=== PATIENT | female | born 1945 | race Caucasian/White ===

== ENCOUNTER 2017-08-05 07:37 | Emergency (ER) | payer MEDICARE, MEDICAID ==
[~2017-08-05] VITALS: Ht 165.1 cm; Wt 50.8 kg
--- NOTE | 2017-08-05 07:40 | NUR ---
[facility], PER REPORT, PT HIT HEAD. NO KO. RECEIVED PT AAO4. DENIES HITTING HEAD. VSS. NO COMPLAIN AT THIS TIME.
--- NOTE | 2017-08-05 08:53 | NUR ---
CALLED TRANSPORT ETA 45 MIN PER JOYCELYN TRIP NUMBER IS [id number]
--- NOTE | 2017-08-05 09:37 | NUR ---
PATIENT TRANSPORTED TO [facility]. VSS
[2017-08-05 09:38] VITALS: BP 120/76
== END 2017-08-05 09:38 | disposition home or self-care (01) ==
LOC: ER 07:39
DX: Z04.3 Encounter for examination and observation following other accident (principal); R51 Headache; D64.9 Anemia, unspecified; C50.919 Malignant neoplasm of unspecified site of unspecified female breast; F03.90 Unspecified dementia, unspecified severity, without behavioral disturbance, psychotic disturbance, mood disturbance, and anxiety; W01.0XXA Fall on same level from slipping, tripping and stumbling without subsequent striking against object, initial encounter; Y93.89 Activity, other specified; Y92.89 Other specified places as the place of occurrence of the external cause; Y99.8 Other external cause status
CPT/HCPCS: 70450; 99284; A4606; Z7610

== ENCOUNTER 2018-01-07 09:25 | Emergency (ER) | payer MEDICARE, MEDICAID ==
[~2018-01-07] VITALS: Ht 152.4 cm; Wt 47.6 kg
--- NOTE | 2018-01-07 09:25 | NUR ---
BBRA FROM HOME C/O TAILBONE PAIN S/P TRIPPED AND FALL, HIT HEAD TO THE DOOR. VSS. BREATHING EVEN AND UNLABORED. DR BOLANOS AT BEDSIDE FOR EVAL. PT PLACED ON MONITOR.
[2018-01-07] MEDS ORDERED: MORPHINE SULFATE INJ 2 MG/ML DISP.SYRIN ONE (09:35)
[2018-01-07] MEDS ORDERED: ONDANSETRON HCL/PF 4 MG/2 ML VIAL ONE (09:35)
[2018-01-07 09:46] LABS: BASOPHILS # (AUTO) 0.1 /CMM (0.0-0.2); BASOPHILS % (AUTO) 0.9 % (0.0-2.0); EOSINOPHILS % (AUTO) 0.4 % (0.0-6.0); HEMATOCRIT 32 % (33-45); HEMOGLOBIN 10.8 g/dL (11.5-14.8); LYMPHOCYTES # (AUTO) 0.7 /CMM (0.8-4.8); LYMPHOCYTES % (AUTO) 11.9 % (20.0-44.0); MEAN CORPUSCULAR HGB CONC 34 g/dl (31.0-36.0); MEAN CORPUSCULAR VOLUME 87 fL (82-100); MONOCYTES # (AUTO) 0.5 /CMM (0.1-1.30); MONOCYTES % (AUTO) 9.1 % (2.0-12.0); NEUTROPHILS # (AUTO) 4.7 /CMM (1.8-8.9); NEUTROPHILS % (AUTO) 77.7 % (43.0-81.0); PLATELET COUNT (AUTO) 204 /CMM (150-450); RDW COEFFICIENT OF VARIATION 16.8 (11.5-15.0); RED BLOOD CELL COUNT(AUTO) 3.68 MIL/uL (4.0-5.2)
[2018-01-07 09:55] LABS: CALCIUM, SERUM 8.7 mg/dL (8.5-10.1); CARBON DIOXIDE 23 mmol/L (21-32); CHLORIDE 104 mmol/L (98-107); CREATININE 0.8 mg/dL (0.6-1.3); GLUCOSE 80 mg/dL (74-106); POTASSIUM 3.9 mmol/L (3.5-5.1); SODIUM SERUM 135 mmol/L (136-145); UREA NITROGEN, BLOOD 14 mg/dL (7-18)
[2018-01-07] MEDS ORDERED: MORPHINE SULFATE INJ 2 MG/ML DISP.SYRIN IV ONE (10:00)
[2018-01-07] MEDS ORDERED: ONDANSETRON HCL/PF 4 MG/2 ML VIAL IVP ONE (10:00)
[2018-01-07] MEDS ORDERED: IV NS 0.9% 500 ML BAG IV ONE (10:00)
[2018-01-07 10:03] LABS: TROPONIN I < 0.017 ng/mL (0.00-0.056)
[2018-01-07 10:06] LABS: ALANINE AMINOTRANSFERASE 49 U/L (12-78); ALBUMIN 2.2 g/dL (3.4-5.0); ASPARTATE AMINOTRANSFERASE 141 U/L (15-37); BILIRUBIN,DIRECT 1.2 mg/dL (0.0-0.2); BILIRUBIN,TOTAL 1.7 mg/dL (0.2-1.0); TOTAL PROTEIN, SERUM 5.7 g/dL (6.4-8.2)
[2018-01-07 10:09] LABS: INR 1.01 (0.85-1.15)
[2018-01-07 10:43] LABS: ALKALINE PHOSPHATASE 1200 U/L (46-116)
[2018-01-07 11:42] VITALS: BP 128/67
--- NOTE | 2018-01-07 12:11 | NUR ---
ART [employer] AND AIR DELIVERY SPECIALIST AND [employer] MECHANIC SPOKE WITH PATIENT'S BROTHER REGARDING HOSPICE SERVICES AND OFFERED SERVICES TO HIM. PER BROTHER HE WOULD LIKE TO GO TO HIS OWN ONCOLOGIST AND TO BE DISCHARGED. PT VERBALIZED UNDERSTANDING OF SERVICES OFFERED AND STILL WISHES TO BE DISCHARGED. PATIENT AGREED. DR BOLANOS AWARE. CALLING TRANSPORT AT THIS TIME.
--- NOTE | 2018-01-07 12:17 | NUR ---
CALLED [facility] AND SPOKE WITH DISPATCHER BILLY TO ARRANGE A BLS TRANSPORT BACK TO [facility]. AN ETA OF 1300 WAS GIVEN. TRIP#: [id number]
== END 2018-01-07 13:23 | disposition home or self-care (01) ==
LOC: ER 09:27
DX: C79.81 Secondary malignant neoplasm of breast (principal); S00.03XA Contusion of scalp, initial encounter; M54.5 Low back pain; D64.9 Anemia, unspecified; J90 Pleural effusion, not elsewhere classified; K57.30 Diverticulosis of large intestine without perforation or abscess without bleeding; R18.8 Other ascites; Z45.2 Encounter for adjustment and management of vascular access device; W01.0XXA Fall on same level from slipping, tripping and stumbling without subsequent striking against object, initial encounter; Y93.89 Activity, other specified; Y92.89 Other specified places as the place of occurrence of the external cause; Y99.8 Other external cause status
CPT/HCPCS: 36415; 70450-TC; 71045-TC; 72100-TC; 72170-TC; 72192-TC; 80048-TC; 80076-TC; 83605-TC; 84484-TC; 85025-TC; 85730-TC; 86850-TC; 87040-TC; A4606; J2270; J2405; J7040; Z7610

== ENCOUNTER 2018-02-07 08:12 | Inpatient (IN) | payer MEDICARE, MEDICAID ==
[~2018-02-07] VITALS: Ht 167.6 cm; Wt 41.7 kg
--- NOTE | 2018-02-07 08:20 | NUR ---
[id number] FROM HOME D/T GENERALIZED WEAKNESS. PATIENT IS CACHEXIC, FRAIL, BEDRIDDEN. A/OX 2. BREATHING EVEN AND UNLABORED. HX OF BREAST CA, R. BREAST MASTECTOMY. ARNALDO CATH PRESENT ON LEFT CHEST WALL. NO DISTRESS NOTED, VSS. SAFETY AND COMFORT MEASURES IN PLACE. AWAITING MD ORDERS.
--- NOTE | 2018-02-07 08:30 | NUR ---
NEW IV STARTED ON LAC, 20G. BLOOD DRAWN AND SENT TO LAB.
--- NOTE | 2018-02-07 08:35 | NUR ---
URINE OBTAINED VIA STRAIGHT CATH AND SENT TO LAB PER MD ORDERS.
[2018-02-07 08:54] LABS: HEMATOCRIT 29 % (33-45); HEMOGLOBIN 9.6 g/dL (11.5-14.8); MEAN CORPUSCULAR HGB CONC 33 g/dl (31.0-36.0); MEAN CORPUSCULAR VOLUME 93 fL (82-100); PLATELET COUNT (AUTO) 157 /CMM (150-450); RDW COEFFICIENT OF VARIATION 19.7 (11.5-15.0); RED BLOOD CELL COUNT(AUTO) 3.12 MIL/uL (4.0-5.2); WHITE BLOOD COUNT (AUTO) 8.7 K/uL (4.3-11.0)
[2018-02-07 08:59] LABS: APPEARANCE,URINE SL CLOUDY (CLEAR); BILIRUBIN,URINE 1+ (NEGATIVE); BLOOD, URINE NEGATIVE Ery/uL (NEGATIVE); COLOR,URINE YELLOW (YELLOW); KETONES,URINE NEGATIVE (NEGATIVE); LEUKOCYTE ESTERASE ,URINE TRACE (NEGATIVE); NITRITE, URINE NEGATIVE (NEGATIVE); PH,URINE 5.5 (5.0-8.0); PROTEIN,URINE NEGATIVE (NEGATIVE); UGLUCOSE NEGATIVE (NEGATIVE)
[2018-02-07] MEDS ORDERED: IV NS 0.9% 1,000 ML BAG IV ONE (09:00)
--- NOTE | 2018-02-07 09:00 | NUR ---
BARKEEPER AT BEDSIDE.
[2018-02-07] MEDS ORDERED: DOCU-141 PO (09:14)
[2018-02-07] MEDS ORDERED: ANAS1TAB8 PO (09:14)
[2018-02-07 09:16] LABS: TROPONIN I < 0.017 ng/mL (0.00-0.056)
[2018-02-07 09:20] LABS: ALANINE AMINOTRANSFERASE 99 U/L (12-78); ALBUMIN 2.4 g/dL (3.4-5.0); ASPARTATE AMINOTRANSFERASE 318 U/L (15-37); BACTERIA,URINE Few /HPF (None Seen); BILIRUBIN,DIRECT 5.5 mg/dL (0.0-0.2); BILIRUBIN,TOTAL 6.5 mg/dL (0.2-1.0); CALCIUM, SERUM 8.9 mg/dL (8.5-10.1); CARBON DIOXIDE 21 mmol/L (21-32); CHLORIDE 109 mmol/L (98-107); CREATININE 0.9 mg/dL (0.6-1.3); POTASSIUM 4.2 mmol/L (3.5-5.1); RBC,URINE NONE SEEN /HPF (0-2); SODIUM SERUM 145 mmol/L (136-145); TOTAL PROTEIN, SERUM 5.1 g/dL (6.4-8.2); UREA NITROGEN, BLOOD 61 mg/dL (7-18)
[2018-02-07 09:21] LABS: ALKALINE PHOSPHATASE 1450 U/L (46-116); GLUCOSE 40 mg/dL (74-106); SQUAMOUS EPITHELIAL CELL,UR Few /HPF (None Seen); URINE AMORPHOUS URATE Moderate /HPF (None Seen)
[2018-02-07] MEDS ORDERED: DEXTROSE 50%-WATER 50 ML DISP.SYRIN ONE (09:23)
[2018-02-07 09:25] LABS: INR 1.57 (0.87-1.13)
[2018-02-07] MEDS ORDERED: DEXTROSE 50%-WATER 50 ML DISP.SYRIN IV ONE (09:30)
--- NOTE | 2018-02-07 09:35 | NUR ---
ROOM CHANGE TO 310-2
--- NOTE | 2018-02-07 09:39 | NUR ---
REPORT GIVEN TO REID YI FOR CHRISTAL UPON ADMISSION.
[2018-02-07 09:53] LABS: BAND % (MANUAL) 2 % (0.0-5.0); LYMPHOCYTES % (MANUAL) 9 % (16-48); MONOCYTES % (MANUAL) 6 % (0-11.0); NEUTROPHILS % (MANUAL) 83 (42-76)
--- NOTE | 2018-02-07 09:57 | NUR ---
repeat blood sugar, 72, md informed.
[2018-02-07 10:30] VITALS: BP 124/77
--- NOTE | 2018-02-07 10:30 | NUR ---
RN NOTES CHARGE NURSE SOON RECEIVED BEDSIDE REPORT FROM ER NURSE
--- NOTE | 2018-02-07 10:45 | NUR ---
TELE/RN ADMITTING NOTES RECEIVED PT ASSIGNMENT, CHARGE NURSE SOON GAVE REPORT FOR CHRISTAL, RECEIVED PT IN BED, APPEARS TO BE LETHARGIC BUT EASILY AROUSABLE TO NAME AND LIGHT TOUCH. PT ON 2LPM 02 VIA NC, TOLERATING WELL. NO ACUTE DISTRESS NOTED, NO C/O PAIN, BROTHAARON MARTINEZ AT BEDSIDE, PLACED ON TELE MONITOR, SR AT 83. WITH INTACT AND PATENT SL ON LAC, INITIAL BODY ASSESSMENT DONE, VS TAKEN AND RECORDED. SAFETY MEASURES OBSERVED. BED IN LOW AND LOCKED POSITION, SR UP X2, CALL LIGHT WITHIN REACH, ORIENTED TO PT'S ROOM, DR OTRIZ WILL SEE PT, WILL CONT TO MONITOR
[2018-02-07 12:00] VITALS: BP_SYST 122; BP_SYST 129; BP_DIAS 79; BP_DIAS 82
--- NOTE | 2018-02-07 13:00 | NUR ---
RN NOTES PT WAS SEEN AND EXAMINED BY BROTHER MICHELLE ZENG AT BEDSIDE. ALL CONCERNS WERE ANSWERED BY
[2018-02-07] MEDS ORDERED: Z GUARD REMEDY 2 OZ OINT TP PRN (13:30)
[2018-02-07] MEDS ORDERED: DOCUSATE SODIUM 100 MG CAPSULE PO PRN (13:30)
[2018-02-07] MEDS ORDERED: IV D5/ 0.9% NACL 1,000 ML IV ONE (13:30)
[2018-02-07] MEDS ORDERED: ZOLPIDEM TARTRATE 5 MG TABLET PO PRN (13:30)
[2018-02-07] MEDS ORDERED: ACETAMINOPHEN 325 MG TABLET PO PRN (13:30)
[2018-02-07] MEDS ORDERED: MAG HYDROX/AL HYDROX/SIMETH 30 ML UDC PO PRN (13:30)
[2018-02-07] MEDS ORDERED: MAGNESIUM HYDROXIDE 30 ML UDC PO PRN (13:30)
[2018-02-07] MEDS ORDERED: ONDANSETRON HCL/PF 4 MG/2 ML VIAL IVP PRN (13:30)
[2018-02-07 16:00] VITALS: BP 129/79
--- NOTE | 2018-02-07 19:13 | NUR ---
RN CLOSING NOTES PT REMAINED STABLE, NO C/O PAIN, NO ACUTE DISTRESS NOTED, SAFETY MEASURES OBSERVED AT ALL TIMES, ENDORSED TO PM SHIFT NURSE FOR CHRISTAL
--- NOTE | 2018-02-07 19:30 | NUR ---
BIOLOGICAL ENGINEER NOTE: RECEIVED PATIENT AOX2, SPEECH CLEAR, WITH FAMILY AT BEDSIDE, NO PAIN REPORTED, NO S/SX OF RESPIRATORY OR CARDIAC DISTRESS, 2L O2 VIA NC, INCONTINENT SKIN KEPT CLEAN AND DRY, LAC #20G PATENT FLUSHING WELL WITH D5NS AT 100 ML/HR, CDI, SAFETY MAINTAINED AT ALL TIMES, BED IN LOW LOCKED POSITION, CALL LIGHT WITHIN REACH, WILL CONTINUE TO MONITOR FOR ANY CHANGES IN CONDITION.
[2018-02-07] MEDS: HYDROCODONE/APAP 5/325MG 1 EACH TABLET PO PRN (22:09)
[2018-02-08] VITALS: BP 125/82
[2018-02-08 04:00] VITALS: BP 133/84
[2018-02-08 06:10] LABS: HEMATOCRIT 32 % (33-45); HEMOGLOBIN 10.8 g/dL (11.5-14.8); MEAN CORPUSCULAR HGB CONC 34 g/dl (31.0-36.0); MEAN CORPUSCULAR VOLUME 93 fL (82-100); PLATELET COUNT (AUTO) 148 /CMM (150-450); RDW COEFFICIENT OF VARIATION 19.7 (11.5-15.0); WHITE BLOOD COUNT (AUTO) 11.2 K/uL (4.3-11.0)
[2018-02-08 06:16] LABS: CHOLESTEROL 289 mg/dL (<200); HDL CHOLESTEROL 90 mg/dL (40-60); LDL 171 mg/dL (0-99); TRIGLYCERIDES 37 mg/dL (30-150)
[2018-02-08 06:20] LABS: CALCIUM, SERUM 8.8 mg/dL (8.5-10.1); CARBON DIOXIDE 19 mmol/L (21-32); CHLORIDE 114 mmol/L (98-107); CREATININE 1.1 mg/dL (0.6-1.3); GLUCOSE 178 mg/dL (74-106); MAGNESIUM 2.9 mg/dL (1.8-2.4); PHOSPHORUS 4.4 mg/dL (2.5-4.9); SODIUM SERUM 148 mmol/L (136-145); UREA NITROGEN, BLOOD 65 mg/dL (7-18)
--- NOTE | 2018-02-08 07:10 | NUR ---
CHART CHANGER OPENING NOTE: RECEIVED PATIENT IN BED AOX1, SPEECH CLEAR, NO S/SX OF RESPIRATORY OR CARDIAC DISTRESS, 2L O2 VIA NC, IV LAC #20G PATENT FLUSHING WELL . SAFETY MAINTAINED AT ALL TIMES, BED IN LOW LOCKED POSITION, CALL LIGHT WITHIN REACH, WILL CONTINUE TO MONITOR FOR ANY CHANGES IN CONDITION.
[2018-02-08 08:00] VITALS: BP 102/67
[2018-02-08] MEDS: HYDROCODONE/APAP 5/325MG 1 EACH TABLET PO PRN (08:16)
--- NOTE | 2018-02-08 08:34 | NUR ---
WOUND CARE CONSULT: PT PRESENTS WITH DEEP TISSUE INJURIES WHICH ARE INTACT, TO SACRUM AND RT EAR, PRESENT ON ADMISSION. PT ALSO NOTED TO BE EXTREMELY CACHECTIC WITH DUSKY COLOR TO FEET AND 4+ PITTING EDEMA. ALL SKIN PROTECTION AND WOUND CARE RECOMMENDATIONS DISCUSSED WITH NURSING STAFF. PT ON NEW POINT ISOFLEX LOW AIRLOSS BED. WILL SEE PRN. RODRIGUEZ IN AGREEMENT WITH PLAN OF CARE. Addendum: 02/08/18 at 0836 by SIOMARA MASON WNDNU Amended: Links added.
[2018-02-08 08:47] LABS: BAND % (MANUAL) 1 % (0.0-5.0); EOSINOPHILS % (MANUAL) 1 % (0-4); LYMPHOCYTES % (MANUAL) 4 % (16-48); MONOCYTES % (MANUAL) 2 % (0-11.0); NEUTROPHILS % (MANUAL) 92 (42-76)
--- NOTE | 2018-02-08 08:57 | NUR ---
RN NOTES WOUND CONSULT DONE.GOT NEW ORDERS.
[2018-02-08] MEDS ORDERED: ANASTROZOLE 1 MG TABLET PO SCH (09:00)
[2018-02-08] MEDS ORDERED: MORPHINE SULFATE INJ 4 MG/ML DISP.SYRIN IV PRN (11:00)
[2018-02-08] MEDS ORDERED: IV D5/ 0.9% NACL 1,000 ML IV ONE (11:00)
--- NOTE | 2018-02-08 11:00 | NUR ---
RN NOTES PATIENT TAKING MORE TIME TO SWALLOW. MEDS AND FOOD.REQUESTED FOR IV PAIN MANAGEMENT AND IVF TO .GOT NEW ORDERS.BROTHER AT BEDSIDE.PREFERS HOSPICE CARE. MADE AWARE.PATIENT IS COMFORTABLE .CONTINUE TO MONITOR.
[2018-02-08] MEDS ORDERED: ACETAMINOPHEN 650 MG/SUPP.RECT RC PRN (15:00)
[2018-02-08] MEDS ORDERED: LORAZEPAM INJ 2 MG/ML VIAL IV PRN (15:00)
--- NOTE | 2018-02-08 15:00 | NUR ---
RN NOTES SEEN BY .SPOKE TO BROTHER.GOT NEW ORDER FOR COMFORT CARE,TO START ON MORPHINE DRIP.CARRIED OUT ALL THE ORDERS .BROTHER IS AT BEDSIDE.PATIENT HAS RESPIRATORY RATE OF 24.WILL CONTINUE TO MONITOR.
[2018-02-08] MEDS ORDERED: KEY,NONCONTROL,TO KEEP IN PYXI 1 EA MC ONE (17:23)
--- NOTE | 2018-02-08 19:00 | NUR ---
RN SHIFT END NOTE: PATIENT IN BED NOT RESPONDS ONLY TO TOUCH AND MILD PAIN, ON IV MORPHINE DRIP 2MG/HR FOR COMFORT CARE.BROTHER IS AT BEDSIDE.NO OTHER FAMILY MEMBERS TO VISIT HER PER BROTHER. NO S/SX OF RESPIRATORY OR CARDIAC DISTRESS, 2L O2 VIA NC,CURRENT RESPIRATORY RATE IS 22. IV LAC #20G PATENT FLUSHING WELL . SAFETY MAINTAINED AT ALL TIMES, BED IN LOW LOCKED POSITION, CALL LIGHT WITHIN REACH, ENDORSED TO PM NURSE FOR CHRISTAL
--- NOTE | 2018-02-08 22:35 | NUR ---
MS-1/CREPE BOX TENDER PT AT 2139 PRONOUNCED BY KINGSTON YI AND UMA YI. [facility] CALLED @ 2139 REF# [id number], PT BROTHER MICHELLE NOTIFIED AT 2199, VIKY CULLEN NOTIFIED AT 2150, ADMITTING NOTIFIED AT 2151, MARINO CALZADA NOTIFIED AT 2155. POST MORTEM CARE DONE. REMAINS TAKEN TO IN HOUSE MICHELLE.
== END 2018-02-08 21:40 | disposition expired | DRG 682 ==
LOC: ER 08:13 → TELE 10:26 → TELE-TD 10:44 → TELE1 11:19 → MEDSG1 02-08 09:37
PROVIDERS: ADMIT Family Medicine; ATTEND Family Medicine
DX: N17.0 Acute kidney failure with tubular necrosis (principal); E43 Unspecified severe protein-calorie malnutrition; K72.00 Acute and subacute hepatic failure without coma; R64 Cachexia; Z68.1 Body mass index [BMI] 19.9 or less, adult; C79.9 Secondary malignant neoplasm of unspecified site; Z66 Do not resuscitate; Z51.5 Encounter for palliative care; R62.7 Adult failure to thrive; E86.0 Dehydration; C50.919 Malignant neoplasm of unspecified site of unspecified female breast; E16.2 Hypoglycemia, unspecified; E86.9 Volume depletion, unspecified; D63.0 Anemia in neoplastic disease
CPT/HCPCS: 36415; 71045-TC; 80048-TC; 80061-TC; 80076-TC; 81000-TC; 82962-TC; 83605-TC; 83735-TC; 84100-TC; 84484-TC; 85025-TC; 85730-TC; 87040-TC; 87081-TC; 87086-TC; A4606; J2274; J7030; J7042; J7050; Z7610